=== PATIENT | male | born 1980 | race Hispanic/Latino ===

== ENCOUNTER 2018-03-01 20:07 | Emergency (ER) | payer OTHER ==
[2018-03-01 20:23] VITALS: TEMP 98.9
[2018-03-01] MEDS ORDERED: Silver Sulfadiazine 1% Cream (20 gm) TOP STA (20:51)
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
[2018-03-01] MEDS ORDERED: Silver Sulfadiazine 1% Cream (20 gm) ONE (21:19)
[2018-03-01 23:06] VITALS: BP 146/86; PULSE 82; RESP 16
[2018-03-02 14:17] VITALS: O2SAT 98
== END 2018-03-01 22:15 | disposition home or self-care (01) ==
LOC: C.ER 20:07
DX: T21.22XA Burn of second degree of abdominal wall, initial encounter (principal); X10.2XXA Contact with fats and cooking oils, initial encounter; Y93.G3 Activity, cooking and baking